=== PATIENT | female | born 1985 | race Caucasian/White ===

== ENCOUNTER 2016-10-04 00:36 | Emergency (ER) | payer OTHER ==
[~2016-10-04] VITALS: Ht 160 cm; Wt 81.6 kg
[2016-10-04 01:00] VITALS: BP 126/83; PULSE 70; RESP 16; TEMP 98.4; O2SAT 100
--- NOTE | 2016-10-04 01:00 | NUR ---
Patient to ER bed 5 to gown for evaluation. Side rails up.
--- NOTE | 2016-10-04 01:10 | NUR ---
PT IS AOX4, C/O ITCHINESS THAT STARTED LST NIGHT AROUND 2100. PT DENIES ANY PAIN.
[2016-10-04] MEDS ORDERED: FAMOTIDINE 20 MG TABLET PO ONE (01:15)
[2016-10-04] MEDS ORDERED: LORATADINE 10 MG TABLET PO ONE (01:15)
[2016-10-04] MEDS ORDERED: DEXAMETHASONE SOD PHOSPHATE 10 MG/ML VIAL IM ONE (01:15)
--- NOTE | 2016-10-04 01:15 | NUR ---
ER at bedside examining patient.
[2016-10-04 02:00] VITALS: BP 126/83; PULSE 70; RESP 16; TEMP 98.4; O2SAT 100
--- NOTE | 2016-10-04 02:00 | NUR ---
Patient given written and verbal discharge instructions and verbalizes understanding. ER MD discussed with patient the results and treatment provided. Patient in stable condition. ID arm band removed. Rx of CLARITIN 10 MG given. Patient educated on pain management and to follow up with PMD. Pain Scale 0/10. Opportunity for questions provided and answered.
== END 2016-10-04 02:00 | disposition home or self-care (01) ==
LOC: SED 00:36
DX: T78.40XA Allergy, unspecified, initial encounter (principal); X58.XXXA Exposure to other specified factors, initial encounter
CPT/HCPCS: 96372; 99283; J1100